=== PATIENT | male | born 1940 | race Caucasian/White ===

== ENCOUNTER → 2018-11-22 | Outpatient (CLI) | payer MEDICARE, OTHER ==
[~2018-11-22] MED LIST: AMLO10; ASPI81CH PO; Advil200 M1; Aspir 8181 MG; BENAML10/2; HYDCHL25; HYDCHL25 PO; METO25ER PO; OMEP20ER; OMEPRAZOLE MAGN20 MG PO; Prednisone20 MG PO; Ultram50 MG PO; Zithromax250 MG PO
== END | disposition home or self-care (01) ==
LOC: LAB SHORT 07:23 → PLD 07:23
DX: L57.0 Actinic keratosis (principal); L81.4 Other melanin hyperpigmentation
CPT/HCPCS: 88305

== ENCOUNTER → 2018-11-22 | Outpatient (CLI) | payer MEDICARE, OTHER | END | disposition home or self-care (01) | LOC: PLD 12:31 → LAB SHORT 12:31 | DX: L82.0 Inflamed seborrheic keratosis (principal) | CPT/HCPCS: 88305 ==

== ENCOUNTER → 2021-05-11 | Outpatient (CLI) | payer MEDICARE, OTHER | LOC: LAB 08:29 → LAB SHORT 08:29 | DX: D48.5 Neoplasm of uncertain behavior of skin (principal); Z88.6 Allergy status to analgesic agent | CPT/HCPCS: 88305 ==

== ENCOUNTER 2021-06-16 08:14 | Day surgery (SDC) | payer MEDICARE, OTHER ==
[~2021-06-16] VITALS: Ht 180.3 cm; Wt 96.0 kg
[~2021-06-16 08:14] MED LIST changes: +ATOR40TA PO; +ATROVENT HFA12.9 GM INH; +BENA20 PO; +ELIQUIS2.5 M1 PO; +SYMBICORT 16010.2 GM IH
== END 2021-06-16 14:31 | disposition home or self-care (01) ==
LOC: MHTC 08:14
DX: I70.213 Atherosclerosis of native arteries of extremities with intermittent claudication, bilateral legs (principal); I10 Essential (primary) hypertension; J44.9 Chronic obstructive pulmonary disease, unspecified; K21.9 Gastro-esophageal reflux disease without esophagitis; I48.91 Unspecified atrial fibrillation; Z87.891 Personal history of nicotine dependence; Z79.01 Long term (current) use of anticoagulants
CPT/HCPCS: 75625; 75716; 75774; 76937; 99152; 99153; C1725; C1760; C1769; C1887; C1894; C2623; C9764; J1644; J2060; J3010; J7030; J7050; Q9967

== ENCOUNTER → 2021-07-06 | Outpatient (CLI) | payer MEDICARE, OTHER | END | disposition home or self-care (01) | LOC: LAB 14:13 → LAB SHORT 14:13 | DX: L57.0 Actinic keratosis (principal) | CPT/HCPCS: 88305 ==

== ENCOUNTER → 2021-08-29 | Outpatient (CLI) | payer MEDICARE, OTHER ==
[~2021-08-29] MED LIST changes: +TIAZAC240 M1 PO
[2021-08-29 10:54] LABS: International Normalized Ratio 1.05
== END | disposition home or self-care (01) ==
LOC: LAB SHORT 10:30 → LAB 10:30
PROVIDERS: Physician Assistant
DX: Z01.812 Encounter for preprocedural laboratory examination (principal); I35.0 Nonrheumatic aortic (valve) stenosis
CPT/HCPCS: 85610

== ENCOUNTER 2022-06-07 11:29 | Inpatient (IN) | payer MEDICARE, OTHER ==
[~2022-06-07] VITALS: Ht 180.3 cm; Wt 95.0 kg
[2022-06-07 13:27] LABS: BASOPHILS ABSOLUTE AUTO 0.08 K/mm3 (0.00-0.23); BASOPHILS PERCENT AUTO 0 % (0-2); EOSINOPHILS ABSOLUTE AUTO 0.12 K/mm3 (0.00-0.68); EOSINOPHILS PERCENT AUTO 1 % (0-6); Hematocrit 38.4 % (37.0-53.0); Hemoglobin 12.7 g/dL (13.5-17.5); IMMATURE GRAN ABSOLUTE AUTO 0.09 K/mm3 (0.00-0.10); IMMATURE GRAN PERCENT AUTO 1 % (0-1); LYMPHOCYTES ABSOLUTE AUTO 1.58 K/mm3 (0.84-5.20); LYMPHOCYTES PERCENT AUTO 9 % (21-46); MONOCYTES PERCENT AUTO 11 % (4-13); Mean Corpuscular HGB 26.5 pg (26.0-34.0); Mean Corpuscular HGB Conc 33.1 g/dL (31.5-36.5); Mean Corpuscular Volume 80 fL (80-100); Mean Platelet Volume 9.6 fL (9.1-12.4); NEUTROPHILS ABSOLUTE AUTO 14.54 K/mm3 (1.96-9.15); NEUTROPHILS PERCENT AUTO 79 % (41-73); Platelet Count 339 K/mm3 (150-400); RDW Coefficient Variation 17.2 % (11.7-14.2); Red Blood Cell Count 4.79 M/mm3 (4.30-5.90); White Blood Cell Count 18.51 K/mm3 (4.00-11.30)
[2022-06-07 13:42] LABS: Bun/Creatinine Ratio 19.8 (12.0-20.0); Calcium, Blood 8.5 mg/dL (8.5-10.1); Creatinine, Blood 0.61 mg/dL (0.60-1.20); Potassium, Blood 3.6 mmol/L (3.5-5.5)
[2022-06-07 13:47] LABS: International Normalized Ratio 1.09; Prothrombin Time Results 11.4 Sec (9.7-11.5)
[2022-06-07 13:53] LABS: Influenza A, PCR NEGATIVE (NEGATIVE); Influenza B, PCR NEGATIVE (NEGATIVE); Resp Syncytial Virus, PCR NEGATIVE (NEGATIVE); SARS-Cov-2 (COVID-19) PCR, MMC NEGATIVE (NEGATIVE)
[2022-06-07] MEDS ORDERED: ASPIR 8181 M1 PO (14:31)
--- NOTE | 2022-06-07 15:34 | NUR ---
BEER and TEDS Patient claims to drink 4 cans of beer daily; however, states he drinks about two 6 packs daily and more on a hot day. With concerns of alcohol withdrawal, per T.O. from Dr. Mancia, patient is to have one beer with every meal. Patient also declines to wear TEDS per his vascular doctor's recommendation due to already poor perfusion in lower extremities. Dr. Mancia is aware and order to d/c TEDS. Patient will receive VTE prophylaxis is the form of lovenox.
--- NOTE | 2022-06-07 16:01 | NUR ---
COLACE AND ST Patient c/o having food stuck in throat sometimes. Ate a couple of soft taco and had to drink water to get it unstuck according to patient. Also requesting colace. V.O. from Dr. Mancia to order ST to eval and treat and give colace 100 mg PO daily.
--- NOTE | 2022-06-07 17:35 | NUR ---
Shift Summary Arrived from ED, reort received from RAMIRO Perez. A/Ox4, pleasant/cooperative. Slide transfer to bed x 4 assist. C/O 3/10 L hip pain, medicated with scheduled tylenol with good effect. reports patient drinking beer more than what patient had initially stated to this RN. CIWA 0 at this time. Currently on bedrest, agreeable to use bedpan and urinal for the mean time. Good appetite. Did c/o some food getting stuck in throat, CREAM BUYER eval ordered. Pedal pulses required doppler to auscultate. Patient reports poor perfusion from past arterial ultrasound, refused TEDS. Settled to room, call light near.
--- NOTE | 2022-06-08 04:09 | NUR ---
SHIFT SUMMARY A/OX4, BEDREST AT THIS TIME. C/O PAIN TO LLE, MEDICATED PER EMAR. FAINT PEDAL PULSES FOUND WITH DOPPLER. HX SIRENA, TO BRING IN CPAP TODAY. CURRENTLY ON 2L NC WITH CONT. BIOX IN PLACE. WILL CONTINUE TO MONITOR AND REPORT TO ONCOMING RN.
[2022-06-08 06:15] LABS: BASOPHILS ABSOLUTE AUTO 0.06 K/mm3 (0.00-0.23); BASOPHILS PERCENT AUTO 0 % (0-2); EOSINOPHILS PERCENT AUTO 2 % (0-6); Hematocrit 36.2 % (37.0-53.0); IMMATURE GRAN ABSOLUTE AUTO 0.05 K/mm3 (0.00-0.10); IMMATURE GRAN PERCENT AUTO 0 % (0-1); LYMPHOCYTES ABSOLUTE AUTO 1.47 K/mm3 (0.84-5.20); LYMPHOCYTES PERCENT AUTO 10 % (21-46); MONOCYTES ABSOLUTE AUTO 1.96 K/mm3 (0.16-1.47); MONOCYTES PERCENT AUTO 14 % (4-13); Mean Corpuscular HGB 26.6 pg (26.0-34.0); Mean Corpuscular HGB Conc 33.1 g/dL (31.5-36.5); Mean Corpuscular Volume 80 fL (80-100); Mean Platelet Volume 10.4 fL (9.1-12.4); NEUTROPHILS ABSOLUTE AUTO 10.46 K/mm3 (1.96-9.15); NEUTROPHILS PERCENT AUTO 73 % (41-73); Platelet Count 338 K/mm3 (150-400); RDW Coefficient Variation 17.1 % (11.7-14.2); RDW Standard Deviation 48.7 fL (35.1-46.3); Red Blood Cell Count 4.51 M/mm3 (4.30-5.90)
[2022-06-08 06:37] LABS: Albumin, Blood 3.2 g/dL (3.4-5.0); Anion Gap 5 mmol/L (6-16); Blood Urea Nitrogen 12 mg/dL (8-24); Bun/Creatinine Ratio 21.9 (12.0-20.0); CO2, Blood 28 mmol/L (21-32); Calcium, Blood 8.4 mg/dL (8.5-10.1); Chloride, Blood 101 mmol/L (98-108); Creatinine, Blood 0.55 mg/dL (0.60-1.20); Glomerular Filtration Rate 100 (60-); Glucose, Blood 95 mg/dL (70-99); Magnesium, Blood 2.1 mg/dL (1.6-2.4); Phosphorus, Blood 2.8 mg/dL (2.5-4.9); Potassium, Blood 3.5 mmol/L (3.5-5.5); Sodium, Blood 134 mmol/L (136-145)
--- NOTE | 2022-06-08 15:46 | NUR ---
SHIFT SUMMARY A&O X4, LEFT FEMUR FX. VSS ON 2L O2, SATS >92%. PATIENT IS CURRENTLY BEDREST UNTIL SURGERY WHICH WAS DELAYED D/T PATIENT TAKING ELIQUIS, LAST DOSE 8/2 AM. PATIENT IS CURRENTLY EATING, DRINKING, & VOIDING WELL. NO BM. REPORTS MODERATE PAIN, MANAGED PER EMAR. HOPEFUL FOR SURGERY TOMORROW. CALLS APPROPRIATELY. REPORT GIVEN TO RAMIRO STAHL.
--- NOTE | 2022-06-09 04:46 | NUR ---
ASSUMED CARE OF PT AT 1900 HRS. PT IS A&OX4, ON BED REST, VIODS IN AND IS ABLE TO MAKE NEEDS KNOWN. PT HAS BEEN NPO SINCE MIDNIGHT FOR POSSIBLE SURGERY TODAY D/T FALL AND BROKNE HIP. CSM IN ALL EXTREMITIES. PAIN IS WELL CONTROLLED WITH PRN MORPHINE 2MG. PT RESTS BETWEEN CARES, SLEEPS 4 HOURS THIS SHIFT. WILL CONTINUE TO MONITOR AND GIVE HANDOFF REPORT TO DAYSHIFT RN.
[2022-06-09 05:02] LABS: BASOPHILS ABSOLUTE AUTO 0.06 K/mm3 (0.00-0.23); BASOPHILS PERCENT AUTO 0 % (0-2); EOSINOPHILS ABSOLUTE AUTO 0.18 K/mm3 (0.00-0.68); EOSINOPHILS PERCENT AUTO 1 % (0-6); Hematocrit 36.1 % (37.0-53.0); Hemoglobin 11.8 g/dL (13.5-17.5); IMMATURE GRAN ABSOLUTE AUTO 0.05 K/mm3 (0.00-0.10); IMMATURE GRAN PERCENT AUTO 0 % (0-1); LYMPHOCYTES ABSOLUTE AUTO 1.48 K/mm3 (0.84-5.20); LYMPHOCYTES PERCENT AUTO 10 % (21-46); MONOCYTES ABSOLUTE AUTO 1.77 K/mm3 (0.16-1.47); MONOCYTES PERCENT AUTO 12 % (4-13); Mean Corpuscular HGB Conc 32.7 g/dL (31.5-36.5); Mean Corpuscular Volume 80 fL (80-100); Mean Platelet Volume 10.3 fL (9.1-12.4); NEUTROPHILS ABSOLUTE AUTO 10.77 K/mm3 (1.96-9.15); NEUTROPHILS PERCENT AUTO 75 % (41-73); Platelet Count 374 K/mm3 (150-400); RDW Standard Deviation 48.7 fL (35.1-46.3); Red Blood Cell Count 4.53 M/mm3 (4.30-5.90); White Blood Cell Count 14.31 K/mm3 (4.00-11.30)
[2022-06-09 05:26] LABS: Albumin, Blood 3.2 g/dL (3.4-5.0); Anion Gap 5 mmol/L (6-16); Blood Urea Nitrogen 13 mg/dL (8-24); Bun/Creatinine Ratio 24.1 (12.0-20.0); CO2, Blood 29 mmol/L (21-32); Calcium, Blood 8.7 mg/dL (8.5-10.1); Chloride, Blood 96 mmol/L (98-108); Creatinine, Blood 0.54 mg/dL (0.60-1.20); Glomerular Filtration Rate 101 (60-); Glucose, Blood 104 mg/dL (70-99); Phosphorus, Blood 3.1 mg/dL (2.5-4.9); Potassium, Blood 3.5 mmol/L (3.5-5.5); Sodium, Blood 130 mmol/L (136-145)
--- NOTE | 2022-06-09 12:00 | NUR ---
PT TO SURGERY AT THIS TIME. FAMILY AT BEDSIDE.
--- NOTE | 2022-06-09 17:24 | NUR ---
SHIFT SUMMARY S/P L ORALIA HIP. RETURNED FROM PROCEDURE AT 1715. PT AA0X4, DENIES PAIN OR NAUSEA. TOLERATING ICE WATER AND JELLO WELL AT THIS TIME. AQUACEL CDI TO LEFT HIP SENSATION INTACT. MOVES EXTREMETIES WELL. REMAINS ON 3L OXYGEN CURRENTLY. WILL CONTINUE TO WEAN TOLERATED.
--- NOTE | 2022-06-10 04:19 | NUR ---
ASSUMED CARE OF PT AT 1900 HRS. PT IS A&OX4, MODERATE ASSIST TO BR W/ FWW AND IS ABLE TO MAKE NEEDS KNOWN. POST OP DAY 1 FOR HIP ORALIA, AQUACELL DRESSING IN PLACE, CDI. CSM INTACT. PAIN WELL CONTROLLED WITH TYLENOL AND ULTRAM. PT ABLE TO AMBULATE TO BR W/ FWW AND STAND BY ASSISTANCE. TOLERATING DIET. PT UP IN CHAIR, CALL LIGHT WITHIN REACH. WILL CONTINUE TO MONITOR AND GIVE REPORT TO DANIEL RUBIO.
--- NOTE | 2022-06-10 04:39 | NUR ---
ASSUMED CARE OF PT AT 1900 HRS. PT IS ALERT TO SELF ONLY, HAS BASELINE DEMENTIA. PT HAS BEEN NPO SINCE MIDNIGHT FOR POSSIBLE SURGICAL REPAIR OF HIP AND SHOULDER, SURGICAL CONSULT CALLED IN. PT WOKE UP CONFUSED AND PULLED IV AT THE START OF SHIFT. PAIN CONTROLLED WITH ULTRAM. PT IS A MAX ASSIST IN BED. BED ALARM IS ON FOR PT SAFETY. PT EASY TO REORIENT. WILL CONTINUE TO MONITOR AND GIVE HANDOFF REPORT TO DAY SHIFT RN.
[2022-06-10 06:04] LABS: BASOPHILS ABSOLUTE AUTO 0.03 K/mm3 (0.00-0.23); BASOPHILS PERCENT AUTO 0 % (0-2); EOSINOPHILS PERCENT AUTO 0 % (0-6); Hematocrit 33.1 % (37.0-53.0); Hemoglobin 11.2 g/dL (13.5-17.5); IMMATURE GRAN ABSOLUTE AUTO 0.13 K/mm3 (0.00-0.10); IMMATURE GRAN PERCENT AUTO 1 % (0-1); LYMPHOCYTES ABSOLUTE AUTO 0.61 K/mm3 (0.84-5.20); LYMPHOCYTES PERCENT AUTO 3 % (21-46); MONOCYTES ABSOLUTE AUTO 1.85 K/mm3 (0.16-1.47); MONOCYTES PERCENT AUTO 9 % (4-13); Mean Corpuscular HGB 26.7 pg (26.0-34.0); Mean Corpuscular HGB Conc 33.8 g/dL (31.5-36.5); Mean Corpuscular Volume 79 fL (80-100); Mean Platelet Volume 9.7 fL (9.1-12.4); NEUTROPHILS ABSOLUTE AUTO 19.02 K/mm3 (1.96-9.15); NEUTROPHILS PERCENT AUTO 88 % (41-73); Platelet Count 358 K/mm3 (150-400); RDW Standard Deviation 48.2 fL (35.1-46.3); White Blood Cell Count 21.64 K/mm3 (4.00-11.30)
[2022-06-10 06:27] LABS: Anion Gap 8 mmol/L (6-16); Blood Urea Nitrogen 15 mg/dL (8-24); CO2, Blood 26 mmol/L (21-32); Calcium, Blood 8.4 mg/dL (8.5-10.1); Chloride, Blood 95 mmol/L (98-108); Glomerular Filtration Rate 98 (60-); Glucose, Blood 130 mg/dL (70-99); Phosphorus, Blood 3.4 mg/dL (2.5-4.9); Potassium, Blood 4.2 mmol/L (3.5-5.5); Sodium, Blood 129 mmol/L (136-145)
--- NOTE | 2022-06-10 15:04 | NUR ---
SHIFT SUMMARY: POD 1 LEFT ORALIA HIP PATIENT IS A&OX4. VS ARE WNL AND IS ON RA. PAIN IS MANAGED WITH PO PAIN MEDICATION. LEFT HIP HAS AN AQUACEL THAT IS C/D/I. PATIENT IS ABLE TO WIGGLE FINGERS AND TOES WHEN ASKED. PATIENT REPORTS SLIGHT NUMBNESS ON THE TOP OF HIS LEFT FOOT, BUT DR. ALMODOVAR STATED THAT IT WILL GO AWAY IN TIME. PATIENT IS A SBA WITH FWW AND GAIT BELT. HE IS TOLERATING PO INTAKE AND IS VOIDING/PASSING GAS. PATIENT IS LAYING IN BED WITH CALL LIGHT WITHIN REACH. THE PLAN IS FOR HIM TO GET DISCHARGED TOMORROW WITH HOME HEALTH THAT IS ALREADY SET UP.
--- NOTE | 2022-06-11 02:00 | NUR ---
AMBULATED TO BATHROOM USING GB AMD WALKER, TOLERATED WELL. BSC PLACED OVER COMMODE AND PT REMINDED NOT TO BEND PAST 90 DEGREES AND MAINTAIN ALL HIP PRECAUTIONS. HE ACKNOWLEDGED THAT HE HAD NOT BEEN MAINTAINING WHAT HE HAD BEEN TOLD AND WOULD TRY TO DO BETTER. NURSING REITERATED WHAT MAY HAPPEN IF HE DIDN'T AND THE DAMAGE THAT COULD RESULT FROM NOT BEING COMPLIANT. PT VERBALIZES UNDERSTANDING. SAFETY MEASURES IN PLACED. WILL CONTINUE TO MONITOR AND ADDRESS NEED THEY OCCUR.
--- NOTE | 2022-06-11 05:16 | NUR ---
LYING IN SEMI FOWLERS WITH EYES CLOSED. CPAP IN PLACE WITH BIOX. LEFT HIP DRESSING IN PLACE AND IS C/D/I. PT HAS GOTTEN OOB TO URINATE X2 THIS SHIFT AND HAS TOLERATED WELL. SL 22G PIV TO LEFT WRIST IS PATENT, FLUSHING WITH EASE. DENIES PAIN, DISCOMFORT OR FURTHER NEEDS AT THIS TIME. SAFETY MEASURES IN PLACE. WILL CONTINUE TO MONITOR FOR CHANGES AND ADDRESS THEY ARISE. WILL GIVE HAND OFF TO ONCOMING SHIFT USING SBAR.
[2022-06-11 05:34] LABS: BASOPHILS ABSOLUTE AUTO 0.01 K/mm3 (0.00-0.23); BASOPHILS PERCENT AUTO 0 % (0-2); EOSINOPHILS ABSOLUTE AUTO 0.04 K/mm3 (0.00-0.68); EOSINOPHILS PERCENT AUTO 0 % (0-6); Hematocrit 33.2 % (37.0-53.0); Hemoglobin 11.1 g/dL (13.5-17.5); IMMATURE GRAN PERCENT AUTO 1 % (0-1); LYMPHOCYTES ABSOLUTE AUTO 1.46 K/mm3 (0.84-5.20); LYMPHOCYTES PERCENT AUTO 9 % (21-46); MONOCYTES ABSOLUTE AUTO 2.51 K/mm3 (0.16-1.47); MONOCYTES PERCENT AUTO 15 % (4-13); Mean Corpuscular HGB 26.3 pg (26.0-34.0); Mean Corpuscular HGB Conc 33.4 g/dL (31.5-36.5); Mean Corpuscular Volume 79 fL (80-100); Mean Platelet Volume 10.2 fL (9.1-12.4); NEUTROPHILS PERCENT AUTO 76 % (41-73); Platelet Count 385 K/mm3 (150-400); RDW Coefficient Variation 17.1 % (11.7-14.2); Red Blood Cell Count 4.22 M/mm3 (4.30-5.90); White Blood Cell Count 17.22 K/mm3 (4.00-11.30)
[2022-06-11 06:04] LABS: Albumin, Blood 3.1 g/dL (3.4-5.0); Anion Gap 4 mmol/L (6-16); Blood Urea Nitrogen 18 mg/dL (8-24); Bun/Creatinine Ratio 27.7 (12.0-20.0); CO2, Blood 32 mmol/L (21-32); Calcium, Blood 8.7 mg/dL (8.5-10.1); Chloride, Blood 95 mmol/L (98-108); Creatinine, Blood 0.65 mg/dL (0.60-1.20); Glomerular Filtration Rate 95 (60-); Glucose, Blood 105 mg/dL (70-99); Potassium, Blood 4.2 mmol/L (3.5-5.5); Sodium, Blood 131 mmol/L (136-145)
--- NOTE | 2022-06-11 07:30 | NUR ---
ASSUMED CARE: PT LAYING IN BED, AWAKE AND TALKING TO STAFF. STATES TINGLING TO LEFT LEG BUT CAN MOVE LEG AND TOES. SMALL AMOUNT OF BLOOD NOTED TO HIP DRESSING. DENIES FURTHER NEEDS OR CONCERNS AT THIS TIME.
[2022-06-11] MEDS ORDERED: TRAM50 PO (10:13)
--- NOTE | 2022-06-11 10:30 | NUR ---
PT'S IVS DC'D WNL. PT'S AQUACELL DRESSING CHANGED. WOUND SITE WITH NATASHA, NO ACUTE BLEEDING OR SIGN OF INFECTION NOTED. PT'S SON AT BEDSIDE. ESCORTED OUT VIA WHEEL CHAIR. DENIED FURTHER NEEDS OR CONCERNS.
== END 2022-06-11 10:55 | disposition home health service (06) | DRG 522 ==
LOC: ER 11:29 → SURS 13:21
PROVIDERS: Orthopaedic Surgery; Student in an Organized Health Care Education/Training Program; ADMIT Family Medicine
PROC: 0SRS0JA Replacement of Left Hip Joint, Femoral Surface with Synthetic Substitute, Uncemented, Open Approach (ICD-10-PCS; principal; 2022-06-09 13:00)
DX: S72.002A Fracture of unspecified part of neck of left femur, initial encounter for closed fracture (principal); I50.32 Chronic diastolic (congestive) heart failure; Z20.822 Contact with and (suspected) exposure to COVID-19; I48.91 Unspecified atrial fibrillation; M54.9 Dorsalgia, unspecified; G89.29 Other chronic pain; I11.0 Hypertensive heart disease with heart failure; F17.210 Nicotine dependence, cigarettes, uncomplicated; J43.9 Emphysema, unspecified; D50.9 Iron deficiency anemia, unspecified; Z96.612 Presence of left artificial shoulder joint; Z72.9 Problem related to lifestyle, unspecified; Z98.890 Other specified postprocedural states; Z88.8 Allergy status to other drugs, medicaments and biological substances; Z79.01 Long term (current) use of anticoagulants; Z79.899 Other long term (current) drug therapy; W18.39XA Other fall on same level, initial encounter
CPT/HCPCS: 0241U; 36415; 72170; 73502; 80048; 80069; 83735; 85025; 85610; 85730; 92610; 93005; 93010; 94660; 94760; 94762; 96374; 97110; 97116; 97162; 97166; 97530; 97535; 99285-25; A9270; C1776; J0171; J0690; J0735; J1100; J1650; J1885; J2250; J2270; J2370; J2405; J2704; J2795; J3010; J7030; J7120

== ENCOUNTER 2022-10-24 07:57 | Day surgery (SDC) | payer MEDICARE, OTHER ==
[~2022-10-24] VITALS: Ht 180.3 cm; Wt 99.0 kg
[~2022-10-24 07:57] MED LIST changes: +ASPIR 8181 M1 PO; +TRAM50 PO
[2022-10-24] MEDS ORDERED: LASIX40 MG PO (09:04)
[2022-10-24] MEDS ORDERED: POTA20PAC (09:05)
--- NOTE | 2022-10-24 13:45 | NUR ---
PT BACK TO RECOVERY VIA RECLINER AFTER PROCEDURE. ALERT AND ORIENTED, DENIES PAIN OR DISCOMFORT. RIGHT RADIAL SITE CLEAN AND DRY, NO BLEEDING OR SWELLING NOTED.
--- NOTE | 2022-10-24 14:08 | NUR ---
PT EATING LUNCH, DENIES CURRENT NEEDS. CALL LIGHT IN REACH, VSS.
--- NOTE | 2022-10-24 14:49 | NUR ---
DR PAREDES AT BEDSIDE SPEAKING WITH PT.
--- NOTE | 2022-10-24 15:06 | NUR ---
RIGHT RADIAL TR BAND HAS BEEN FULLY DEFLATED. NO BLEEDING OR SWELLING NOTED AT SITE.
--- NOTE | 2022-10-24 16:03 | NUR ---
IV DC'D, CATH INTACT. PT GIVEN DC INSTRUCTIONS AND FOLLOW UP INFO, VERBALIZED UNDERSTANDING. PT OUT TO CAR VIA WHEELCHAIR.
== END 2022-10-24 16:00 | disposition home or self-care (01) ==
LOC: MHTC 07:57
DX: I25.10 Atherosclerotic heart disease of native coronary artery without angina pectoris (principal); I35.0 Nonrheumatic aortic (valve) stenosis; I70.213 Atherosclerosis of native arteries of extremities with intermittent claudication, bilateral legs; I11.9 Hypertensive heart disease without heart failure; I07.1 Rheumatic tricuspid insufficiency; I48.91 Unspecified atrial fibrillation; K21.9 Gastro-esophageal reflux disease without esophagitis; Z86.73 Personal history of transient ischemic attack (TIA), and cerebral infarction without residual deficits
CPT/HCPCS: 76937; 93454; 99152; A9270; C1769; C1887; C1894; J1644; J2250; J3010; J7030; J7050; Q9967

== ENCOUNTER 2023-03-16 10:38 | Inpatient (IN) | payer MEDICARE, OTHER ==
[~2023-03-16] VITALS: Ht 180.3 cm; Wt 94.0 kg
[~2023-03-16 10:38] MED LIST changes: +LASIX40 MG PO; +POTA20PAC
[2023-03-16 11:58] LABS: Hematocrit 40.2 % (37.0-53.0); Hemoglobin 13.3 g/dL (13.5-17.5); Mean Corpuscular HGB 26.5 pg (26.0-34.0); Mean Corpuscular HGB Conc 33.1 g/dL (31.5-36.5); Mean Corpuscular Volume 80 fL (80-100); Mean Platelet Volume 10.4 fL (9.1-12.4); Platelet Count 208 K/mm3 (150-400); RDW Coefficient Variation 23.8 % (11.7-14.2); Red Blood Cell Count 5.01 M/mm3 (4.30-5.90); White Blood Cell Count 23.03 K/mm3 (4.00-11.30)
[2023-03-16 12:41] LABS: Albumin, Blood 3.1 g/dL (3.4-5.0); Albumin/Globulin Ratio 0.8 (0.8-1.8); Bilirubin, Total 0.5 mg/dL (0.1-1.0); Bun/Creatinine Ratio 32.9 (12.0-20.0); Calcium, Blood 8.9 mg/dL (8.5-10.1); Creatinine, Blood 0.88 mg/dL (0.60-1.20); Potassium, Blood 3.6 mmol/L (3.5-5.5); Total Protein, Blood 7.1 g/dL (6.4-8.2)
[2023-03-16] MEDS ORDERED: FURO40 PO (15:49)
[2023-03-16] MEDS ORDERED: POTCHL20ER PO (17:51)
[2023-03-16 18:34] VITALS: BP 149/87
--- NOTE | 2023-03-16 19:32 | NUR ---
ADMIT 183 PT ADMIT FROM ER. ALERT AND ORIENTED X4. R/A COURSE IN LOWER LOBES. PT TUCKED IN AND REPORT GIVEN TO ONCOMPREM RN
[2023-03-16 20:32] VITALS: BP 143/57
[2023-03-17 05:21] LABS: BASOPHILS ABSOLUTE AUTO 0.03 K/mm3 (0.00-0.23); BASOPHILS PERCENT AUTO 0 % (0-2); EOSINOPHILS PERCENT AUTO 0 % (0-6); Hematocrit 37.1 % (37.0-53.0); Hemoglobin 12.4 g/dL (13.5-17.5); IMMATURE GRAN ABSOLUTE AUTO 0.11 K/mm3 (0.00-0.10); IMMATURE GRAN PERCENT AUTO 1 % (0-1); LYMPHOCYTES ABSOLUTE AUTO 0.84 K/mm3 (0.84-5.20); LYMPHOCYTES PERCENT AUTO 4 % (21-46); MONOCYTES ABSOLUTE AUTO 1.99 K/mm3 (0.16-1.47); MONOCYTES PERCENT AUTO 10 % (4-13); Mean Corpuscular HGB 26.2 pg (26.0-34.0); Mean Corpuscular HGB Conc 33.4 g/dL (31.5-36.5); Mean Corpuscular Volume 78 fL (80-100); Mean Platelet Volume 10.6 fL (9.1-12.4); NEUTROPHILS ABSOLUTE AUTO 17.45 K/mm3 (1.96-9.15); NEUTROPHILS PERCENT AUTO 86 % (41-73); Platelet Count 208 K/mm3 (150-400); RDW Coefficient Variation 23.1 % (11.7-14.2); RDW Standard Deviation 63.7 fL (35.1-46.3); Red Blood Cell Count 4.73 M/mm3 (4.30-5.90); White Blood Cell Count 20.42 K/mm3 (4.00-11.30)
[2023-03-17 05:58] LABS: Albumin, Blood 2.7 g/dL (3.4-5.0); Albumin/Globulin Ratio 0.7 (0.8-1.8); Bilirubin, Total 0.5 mg/dL (0.1-1.0); Bun/Creatinine Ratio 27.1 (12.0-20.0); Calcium, Blood 8.4 mg/dL (8.5-10.1); Creatinine, Blood 0.78 mg/dL (0.60-1.20); Globulin, Blood 3.7 g/dL (2.2-4.0); Magnesium, Blood 1.9 mg/dL (1.6-2.4); Potassium, Blood 3.3 mmol/L (3.5-5.5); Total Protein, Blood 6.4 g/dL (6.4-8.2)
--- NOTE | 2023-03-17 06:45 | NUR ---
PT REQUESTING ADDITIONAL DOSE OF OMEPRAZOLE. AO, VSS, INTERMITTENT 2L NC FOR PATIENT COMFORT, BASELINE NO O2. NO CHANGES NOTED TO RLE CELLULITIS DURING SHIFT. USES URINAL INDEPENDENTLY SITTING AT BEDSIDE. NO BM FOR 3 DAYS PER SPOUSE REPORT. DID NOT ATTEMPT TO WALK LAST NIGHT. IV INFILTRATED, REPLACED WITH IV IN RFA.
[2023-03-17 07:24] VITALS: BP 122/63
[2023-03-17 14:33] VITALS: BP 138/61
--- NOTE | 2023-03-17 17:56 | NUR ---
SHIFT SUMMARY NO ACUTE CHANGES THIS SHIFT. VSS. IS A&O X 4. PLEASANT & COOPERATIVE WITH ALL CARE. IV ANTI BIOTICS GIVEN ORDERED. APPETITE IS GOOD, IS INDEPENDENT FOR RESTROOM USE, OTHERWISE IS BEDREST. MEDICATED ONCE FOR C/O NAUSEA WITH GOOD RELIEF. CALL LIGHT WITHIN REACH, BED IN LOW POSITION. PLAN IS TO CONTINUE IV ANTI BIOTICS & POSSIBLY HOME ON MONDAY.
[2023-03-17 19:14] VITALS: BP 114/45
[2023-03-18 02:12] VITALS: BP 123/54
[2023-03-18 03:31] LABS: Vancomycin, Trough 9.7 ug/mL (5.0-10.0)
--- NOTE | 2023-03-18 06:42 | NUR ---
PT STATES RLE PAIN IS DECREASING, RLE STILL RED, SWOLLEN. ANTIBIOTICS GIVEN ORDERED. PT DID NOT GET OUT OF BED, USES URINAL INDEPENDENTLY. SPOUSE CALLED THIS MORNING STATES PATIENT HAS NOT HAD BM IN 6 DAYS. SPOUSE ALSO STATES PT DRINKS 3-4 BEERS DAILY AT HOME, THIS WAS NOT PREVIOUSLY REPORTED. NO SIGNS OF CIWA AT THIS TIME. OTHERWISE UNEVENTFUL NIGHT.
[2023-03-18 07:41] VITALS: BP 139/67
[2023-03-18 08:45] LABS: BASOPHILS ABSOLUTE AUTO 0.05 K/mm3 (0.00-0.23); BASOPHILS PERCENT AUTO 0 % (0-2); EOSINOPHILS ABSOLUTE AUTO 0.03 K/mm3 (0.00-0.68); EOSINOPHILS PERCENT AUTO 0 % (0-6); Hematocrit 36.9 % (37.0-53.0); Hemoglobin 12.2 g/dL (13.5-17.5); IMMATURE GRAN ABSOLUTE AUTO 0.12 K/mm3 (0.00-0.10); IMMATURE GRAN PERCENT AUTO 1 % (0-1); LYMPHOCYTES ABSOLUTE AUTO 1.12 K/mm3 (0.84-5.20); LYMPHOCYTES PERCENT AUTO 5 % (21-46); MONOCYTES ABSOLUTE AUTO 2.51 K/mm3 (0.16-1.47); MONOCYTES PERCENT AUTO 11 % (4-13); Mean Corpuscular HGB Conc 33.1 g/dL (31.5-36.5); Mean Corpuscular Volume 79 fL (80-100); NEUTROPHILS ABSOLUTE AUTO 18.25 K/mm3 (1.96-9.15); NEUTROPHILS PERCENT AUTO 83 % (41-73); Platelet Count 213 K/mm3 (150-400); RDW Standard Deviation 63.7 fL (35.1-46.3); White Blood Cell Count 22.08 K/mm3 (4.00-11.30)
[2023-03-18 09:09] LABS: Bun/Creatinine Ratio 27.7 (12.0-20.0); Calcium, Blood 8.2 mg/dL (8.5-10.1); Creatinine, Blood 0.72 mg/dL (0.60-1.20); Potassium, Blood 3.8 mmol/L (3.5-5.5)
[2023-03-18 15:35] VITALS: BP 118/63
--- NOTE | 2023-03-18 16:36 | NUR ---
PATIENT A&OX4 AND RESTING IN HIS BED. RLE IS RED AND SWOLLEN FROM JUST BELOW THE KNEE. MILD REDNESS NOTED AT THE RIGHT GROIN AREA. NO OPEN AREAS OR DRAINAIGE NOTED. RFA IV PATENT AND INFUSES WELL WITH SCHEDULED IV ABX. PATIENT REPORTS NO BOWEL MOVEMENT X4 DAYS. NO REPORTS OF GASTRIC DISCOMFORT, APPETITIE IS GOOD, BOWEL TONES ACTIVE X4 QUADRANTS, PATIENT POSITIVE FOR FLATUS, BOWEL MEDICATION ADMINISTERED ORDERED. FAMILY AT BEDSIDE FOR SEVERAL HOURS AND REQUESTING TO SPEAK WITH PROVIDER JENISE. NURSING WILL CONTINUE TO MONITOR.
[2023-03-18 19:09] VITALS: BP 118/58
[2023-03-19 02:57] VITALS: BP 150/78
[2023-03-19 03:42] LABS: Vancomycin, Trough 12.8 ug/mL (5.0-10.0)
--- NOTE | 2023-03-19 06:33 | NUR ---
AO, PLEASANT. REPORTS CONSTANT MILD PAIN IN LEGS BUT DENIES NEED FOR PAIN MEDICATION. RLE IS BRIGHT RED, EDEMATOUS. VANCOMYCIN DOSE INCREASED FOR TODAY'S MORNING DOSE. PT SATS WERE 89% WHILE SLEEPING ON RA, PLACED 2L O2 AT THAT TIME. NO EVENTS DURING SHIFT.
[2023-03-19 07:31] VITALS: BP 158/77
[2023-03-19 09:39] LABS: BASOPHILS ABSOLUTE AUTO 0.07 K/mm3 (0.00-0.23); BASOPHILS PERCENT AUTO 0 % (0-2); EOSINOPHILS ABSOLUTE AUTO 0.11 K/mm3 (0.00-0.68); EOSINOPHILS PERCENT AUTO 1 % (0-6); Hematocrit 34.5 % (37.0-53.0); Hemoglobin 11.5 g/dL (13.5-17.5); IMMATURE GRAN ABSOLUTE AUTO 0.18 K/mm3 (0.00-0.10); IMMATURE GRAN PERCENT AUTO 1 % (0-1); LYMPHOCYTES PERCENT AUTO 5 % (21-46); MONOCYTES ABSOLUTE AUTO 1.72 K/mm3 (0.16-1.47); MONOCYTES PERCENT AUTO 9 % (4-13); Mean Corpuscular HGB 26.3 pg (26.0-34.0); Mean Corpuscular HGB Conc 33.3 g/dL (31.5-36.5); Mean Corpuscular Volume 79 fL (80-100); Mean Platelet Volume 10.6 fL (9.1-12.4); NEUTROPHILS ABSOLUTE AUTO 17.25 K/mm3 (1.96-9.15); NEUTROPHILS PERCENT AUTO 85 % (41-73); Platelet Count 267 K/mm3 (150-400); RDW Coefficient Variation 22.8 % (11.7-14.2); Red Blood Cell Count 4.37 M/mm3 (4.30-5.90); White Blood Cell Count 20.33 K/mm3 (4.00-11.30)
--- NOTE | 2023-03-19 09:47 | NUR ---
NURSE NOTE THIS NURSE AGREES WITH STUDENT NURSE ASSESSMENT.
[2023-03-19 10:05] LABS: Bun/Creatinine Ratio 22.5 (12.0-20.0); Calcium, Blood 7.9 mg/dL (8.5-10.1); Creatinine, Blood 0.67 mg/dL (0.60-1.20); Potassium, Blood 3.4 mmol/L (3.5-5.5)
[2023-03-19 15:07] VITALS: BP 134/75
--- NOTE | 2023-03-19 15:41 | NUR ---
PATIENT RESTING IN BED THROUGHOUT THIS SHIFT. REDDNESS TO RLE SHOWS NO CHANGE FROM JUST BELOW THE KNEE TO THE TIP OF THE TOES. NASAL CANNULA RUNNING AT 2LPM APPLIED DURING PREVIOS SHIFT. O2 SATS MAINTAINING >95% WITH SPOT CHECKS. SPOUSE AND FAMILY AT BEDSIDE. PROVIDER AT BEDSIDE TO DISCUSS PLAN OF CARE AND ANSWER QUESTIONS. INCENTIVE SPIROMETER PLACED AT BEDSIDE AND PATIENT EDUCATION PERFORMED X2. PATIENT'S INCENTIVE EFFORTS MAXED AT 1000 ON THE IS. ANTERIOR PORTION OF LOWER RIGHT LEG SPONTANEOUSLY DRAINING SEROUS FLUID AT APPROX 1300. ABSORBITIVE PAD PLACED UNDER EXTREMITY AND ABDOMINAL PAD PLACED ON TOP ABSOPTION OF DRAINAIGE. PATIENT REPORTS NO CHANGE IN PAIN LEVEL OF A 4/10 (10MAX) AND SETS A TOLERABLE PAIN GOAL OF <6/10 (10MAX). VASCULAR SURGERY CONSULT PENDING. NURSING WILL CONTINUE TO MONITOR.
--- NOTE | 2023-03-19 17:59 | NUR ---
NURSE NOTE THIS RN AGREED WITH SHIFT SUMMARY AND SHIFT ASSESSMENT.
[2023-03-19 20:00] VITALS: BP 135/97
[2023-03-20 03:15] VITALS: BP 151/73
--- NOTE | 2023-03-20 03:52 | NUR ---
CITY MAINTENANCE MANAGER ASSESSMENT NO ACUTE EVENTS DURING THIS SHIFT. A&OX4. PATIENT EFFECTIVELY COMMUNICATES NEEDS. RR EVEN AND UNLABORED ON RA. SPO2 >92%. VSS. PAIN ASSESSED AND MEDICATED PER EMAR. PATIENT NOTED TO SLEEP THROUGHOUT THE NIGHT WITHOUT ACUTE CONCERNS. BED LOW AND LOCKED. CALL LIGHT WITHIN REACH. THIS RN WILL CONTINUE TO MONITOR.
[2023-03-20 04:25] LABS: BASOPHILS ABSOLUTE AUTO 0.06 K/mm3 (0.00-0.23); BASOPHILS PERCENT AUTO 0 % (0-2); EOSINOPHILS ABSOLUTE AUTO 0.27 K/mm3 (0.00-0.68); EOSINOPHILS PERCENT AUTO 2 % (0-6); Hematocrit 36.1 % (37.0-53.0); IMMATURE GRAN ABSOLUTE AUTO 0.15 K/mm3 (0.00-0.10); IMMATURE GRAN PERCENT AUTO 1 % (0-1); LYMPHOCYTES ABSOLUTE AUTO 1.22 K/mm3 (0.84-5.20); LYMPHOCYTES PERCENT AUTO 8 % (21-46); MONOCYTES ABSOLUTE AUTO 1.93 K/mm3 (0.16-1.47); MONOCYTES PERCENT AUTO 12 % (4-13); Mean Corpuscular HGB Conc 33.2 g/dL (31.5-36.5); Mean Corpuscular Volume 78 fL (80-100); NEUTROPHILS PERCENT AUTO 77 % (41-73); Platelet Count 314 K/mm3 (150-400); RDW Coefficient Variation 22.8 % (11.7-14.2); RDW Standard Deviation 63.1 fL (35.1-46.3); Red Blood Cell Count 4.61 M/mm3 (4.30-5.90); White Blood Cell Count 15.93 K/mm3 (4.00-11.30)
[2023-03-20 04:42] LABS: Vancomycin, Trough 14.3 ug/mL (5.0-10.0)
[2023-03-20 04:50] LABS: Bun/Creatinine Ratio 18.6 (12.0-20.0); Calcium, Blood 8.4 mg/dL (8.5-10.1); Creatinine, Blood 0.7 mg/dL (0.60-1.20); Potassium, Blood 3.2 mmol/L (3.5-5.5)
[2023-03-20 07:39] VITALS: BP 143/61
[2023-03-20 15:23] VITALS: BP 138/88
--- NOTE | 2023-03-20 15:41 | NUR ---
WOUND CARE PT WITH PARTIAL THICKNESS ULCER TO ANTERIOR RLE FROM NON INTACT BLISTER. WOUND CLEANSED WITH NS, XEROFORM TO WOUND BED, COVERED ABD, ROLLED GAUZE, BANDANET. PT TOLERATED WELL. ENCOURAGED ELEVATION. WOUND PHOTO AND ASSESSMENT IN HARD CHART. [facility]
--- NOTE | 2023-03-20 16:33 | NUR ---
SHIFT SUMMARY PATIENT IS ALERT AND ORIENTED. PATIENT HAS HAD NO ACUTE EVENTS THIS SHIFT. VITAL SIGNS REVIEWED. PATIENT HAS BEEN RESTING MOST OF SHIFT. PATIENTS CELLULITIS HAS IMPROVED SLIGHTLY IN REDNESS AND WARMTH. PATIENT HAS NOT COMPLAINED OF PAIN, NAUSEA, SOB OR VOMITTING. BED IN LOCKED AND LOWEST POSITION. CALL LIGHT IN PLACE. WILL MONITOR UNTIL SHIFT CHANGE.
[2023-03-20 19:05] VITALS: BP 131/50
[2023-03-21 04:47] VITALS: BP 119/92
[2023-03-21 07:14] VITALS: BP 147/80
[2023-03-21 15:23] VITALS: BP 142/52
--- NOTE | 2023-03-21 19:57 | NUR ---
SHIFT SUMMARY PT A&OX4 AND PLEASANT. INDPENDENT IN ROOM. WOUND CARE NURSE IN TO SEE PT AND CHANGE DRESSING ON RLE. MODERATE AMOUNT OF WEEPING FROM RLE. DRESSING CHANGED TWICE IN AFTERNOON D/T SATURATION. NO C/O PAIN. AT BEDSIDE IN AFTERNOON. BED IN LOWEST POSITION AND CALL LIGHT IN REACH.
[2023-03-21 20:29] VITALS: BP 140/72
[2023-03-22 04:46] VITALS: BP 148/74
[2023-03-22 06:36] LABS: BASOPHILS ABSOLUTE AUTO 0.05 K/mm3 (0.00-0.23); BASOPHILS PERCENT AUTO 0 % (0-2); EOSINOPHILS ABSOLUTE AUTO 0.01 K/mm3 (0.00-0.68); EOSINOPHILS PERCENT AUTO 0 % (0-6); Hemoglobin 11.9 g/dL (13.5-17.5); IMMATURE GRAN ABSOLUTE AUTO 0.22 K/mm3 (0.00-0.10); IMMATURE GRAN PERCENT AUTO 1 % (0-1); LYMPHOCYTES ABSOLUTE AUTO 1.45 K/mm3 (0.84-5.20); LYMPHOCYTES PERCENT AUTO 7 % (21-46); MONOCYTES ABSOLUTE AUTO 1.85 K/mm3 (0.16-1.47); MONOCYTES PERCENT AUTO 9 % (4-13); Mean Corpuscular HGB 26.3 pg (26.0-34.0); Mean Corpuscular HGB Conc 33.1 g/dL (31.5-36.5); Mean Corpuscular Volume 80 fL (80-100); Mean Platelet Volume 9.7 fL (9.1-12.4); NEUTROPHILS PERCENT AUTO 83 % (41-73); Platelet Count 563 K/mm3 (150-400); RDW Coefficient Variation 23.2 % (11.7-14.2); Red Blood Cell Count 4.53 M/mm3 (4.30-5.90); White Blood Cell Count 20.58 K/mm3 (4.00-11.30)
[2023-03-22 06:55] LABS: Albumin, Blood 2.5 g/dL (3.4-5.0); Albumin/Globulin Ratio 0.6 (0.8-1.8); Bilirubin, Total 0.4 mg/dL (0.1-1.0); Bun/Creatinine Ratio 24.4 (12.0-20.0); Calcium, Blood 8.6 mg/dL (8.5-10.1); Creatinine, Blood 0.66 mg/dL (0.60-1.20); Globulin, Blood 3.9 g/dL (2.2-4.0); Potassium, Blood 4.3 mmol/L (3.5-5.5); Total Protein, Blood 6.4 g/dL (6.4-8.2)
[2023-03-22 07:17] VITALS: BP 163/85
[2023-03-22 15:35] VITALS: BP 131/83
--- NOTE | 2023-03-22 15:53 | NUR ---
WOUND CARE RLE WOUND DRESSED PER ORDER. LIGHT COLIN COMPRESSION ADDED PER MD. PT ENCOURAGED ELEVATION WITH FOOT PUMPS FOR VENOUS RETURN AND USE OF IS FOR RESPIRATORY HEALTH. HE VOICED UNDERSTANDING. CELLULITIS BOUNDRY CONTINUES TO CONTRACT
[2023-03-22 19:11] VITALS: BP 139/60
--- NOTE | 2023-03-22 19:20 | NUR ---
SHIFT SUMMARY PT A&OX4 AND PLEASANT. INDEPENDENT IN ROOM. NO ACUTE CHANGES. DRESSINGS ON RLE CHANGED BY WOUND CARE NURSE IN AFTERNOON. LESS DRAINAGE NOTED ON BANDAGES TODAY. DR RAE REQUESTED RIGHT LEG TO BE WRAPPED IN COLIN BANDAGE TO PROVIDE LIGHT COMPRESSION. NO C/O PAIN. BED IN LOWEST POSITION AND CALL LIGHT IN REACH.
[2023-03-23 04:10] VITALS: BP 146/86
[2023-03-23 05:49] LABS: BASOPHILS ABSOLUTE AUTO 0.06 K/mm3 (0.00-0.23); BASOPHILS PERCENT AUTO 0 % (0-2); EOSINOPHILS ABSOLUTE AUTO 0.03 K/mm3 (0.00-0.68); EOSINOPHILS PERCENT AUTO 0 % (0-6); Hematocrit 36.7 % (37.0-53.0); IMMATURE GRAN ABSOLUTE AUTO 0.26 K/mm3 (0.00-0.10); IMMATURE GRAN PERCENT AUTO 1 % (0-1); LYMPHOCYTES ABSOLUTE AUTO 1.59 K/mm3 (0.84-5.20); LYMPHOCYTES PERCENT AUTO 9 % (21-46); MONOCYTES ABSOLUTE AUTO 1.94 K/mm3 (0.16-1.47); MONOCYTES PERCENT AUTO 10 % (4-13); Mean Corpuscular HGB 26.3 pg (26.0-34.0); Mean Corpuscular HGB Conc 32.7 g/dL (31.5-36.5); Mean Corpuscular Volume 80 fL (80-100); Mean Platelet Volume 9.6 fL (9.1-12.4); NEUTROPHILS ABSOLUTE AUTO 14.89 K/mm3 (1.96-9.15); NEUTROPHILS PERCENT AUTO 79 % (41-73); Platelet Count 623 K/mm3 (150-400); RDW Coefficient Variation 23.3 % (11.7-14.2); RDW Standard Deviation 66.4 fL (35.1-46.3); Red Blood Cell Count 4.57 M/mm3 (4.30-5.90); White Blood Cell Count 18.77 K/mm3 (4.00-11.30)
[2023-03-23 06:27] LABS: Albumin, Blood 2.6 g/dL (3.4-5.0); Albumin/Globulin Ratio 0.6 (0.8-1.8); Bilirubin, Total 0.4 mg/dL (0.1-1.0); Bun/Creatinine Ratio 24.5 (12.0-20.0); Creatinine, Blood 0.73 mg/dL (0.60-1.20); Globulin, Blood 4.1 g/dL (2.2-4.0); Potassium, Blood 4.5 mmol/L (3.5-5.5); Total Protein, Blood 6.7 g/dL (6.4-8.2)
[2023-03-23 07:34] VITALS: BP 162/92
--- NOTE | 2023-03-23 07:44 | NUR ---
pt sitting up on the side of the bed a/ox4, pleasant and cooperative with care, follows commands well, denies pain at this time, states a little soreness to back of right calf, lungs are a bit course t/o with faint wheeze at the end of exp, anterior is clear, has been on 2 liters durring the night, room air at this time, no cough noted, hrirr, murmur noted, recent valve replacement, edema noted to rle, ppp +1, cap refill <3sec, vs stable, afebrile iv site is clear and patent, btx4, abd flat soft nontender, voids without diff, skin c/w/s except right le, is pink, pink is receding from line, rossana bennett, call light in reach.
[2023-03-23] MEDS ORDERED: PRED20 PO (12:24)
[2023-03-23] MEDS ORDERED: CEPH500 PO (12:24)
--- NOTE | 2023-03-23 13:00 | NUR ---
WOUND CARE RLE DRESSED PER ORDER. EDEMA HAS DECREASED. CELLULITIS OUT LINE CONTINUES TO CONTRACT. PT TOLERATED WELL
--- NOTE | 2023-03-23 18:49 | NUR ---
pt will have a sleep study tonight and d/c to home tomorrow, doing ok, no needs or complaints this evening, no acute changes, dressing to leg was changed this am, call light in reach.
[2023-03-23 19:48] VITALS: BP 164/72
[2023-03-24 02:29] VITALS: BP 121/65
[2023-03-24 05:34] LABS: BASOPHILS ABSOLUTE AUTO 0.04 K/mm3 (0.00-0.23); BASOPHILS PERCENT AUTO 0 % (0-2); EOSINOPHILS ABSOLUTE AUTO 0.02 K/mm3 (0.00-0.68); EOSINOPHILS PERCENT AUTO 0 % (0-6); Hemoglobin 12.4 g/dL (13.5-17.5); IMMATURE GRAN ABSOLUTE AUTO 0.24 K/mm3 (0.00-0.10); IMMATURE GRAN PERCENT AUTO 2 % (0-1); LYMPHOCYTES ABSOLUTE AUTO 1.76 K/mm3 (0.84-5.20); LYMPHOCYTES PERCENT AUTO 12 % (21-46); MONOCYTES ABSOLUTE AUTO 1.57 K/mm3 (0.16-1.47); MONOCYTES PERCENT AUTO 10 % (4-13); Mean Corpuscular HGB 26.4 pg (26.0-34.0); Mean Corpuscular HGB Conc 32.6 g/dL (31.5-36.5); Mean Corpuscular Volume 81 fL (80-100); Mean Platelet Volume 9.4 fL (9.1-12.4); NEUTROPHILS ABSOLUTE AUTO 11.44 K/mm3 (1.96-9.15); NEUTROPHILS PERCENT AUTO 76 % (41-73); Platelet Count 684 K/mm3 (150-400); RDW Coefficient Variation 23.4 % (11.7-14.2); RDW Standard Deviation 67.1 fL (35.1-46.3); White Blood Cell Count 15.07 K/mm3 (4.00-11.30)
[2023-03-24 06:01] LABS: Albumin, Blood 2.7 g/dL (3.4-5.0); Albumin/Globulin Ratio 0.7 (0.8-1.8); Bilirubin, Total 0.6 mg/dL (0.1-1.0); Bun/Creatinine Ratio 26.8 (12.0-20.0); Calcium, Blood 8.9 mg/dL (8.5-10.1); Creatinine, Blood 0.71 mg/dL (0.60-1.20); Potassium, Blood 4.2 mmol/L (3.5-5.5); Total Protein, Blood 6.7 g/dL (6.4-8.2)
--- NOTE | 2023-03-24 06:33 | NUR ---
SHIFT SUMMARY: CAROL IS A&OX4. VSS, NO ACUTE EVENTS OVERNIGHT. RESPIRATORY THERAPY COMPLETED THE OVERNIGHT OXIMETRY THIS SHIFT, PRINTED RESULTS ON PT'S CHART. PT TOLERATING PO INTAKE WELL, INDEPENDENT TO THE BATHROOM, AND HAS DENIED THE NEED FOR PAIN MEDICATION THIS SHIFT. IV TO LEFT ARM PATENT. PT IS LYING IN BED WITH THE CALL LIGHT IN REACH. WCTM UNTIL REPORT IS GIVEN TO DAY SHIFT RN.
[2023-03-24 07:43] VITALS: BP 168/91
--- NOTE | 2023-03-24 10:46 | NUR ---
PT A&OX4, ANSWERS QUESTIONS APPROPRIATELY. VITAL SIGNS STABLE. ZOSYN GIVEN AT APPROXIMATELY 0830. PT GOING HOME WITH SUPPLEMENTAL OXYGEN AND DISCHARGED THIS MORNING AT 1030.
--- NOTE | 2023-03-24 13:50 | NUR ---
DISCHARGE HOME. Patient ready to DC home. Caremanager set oxygen to be delivered to patient at home. Finished OV ABX. Cellulitis improving. Patient left at 1040.
== END 2023-03-24 10:36 | disposition home or self-care (01) | DRG 603 ==
LOC: ER 10:38 → MEDS 16:35 → ENPENDDIS 03-17 15:05 → MEDS 03-24 10:36
PROVIDERS: Family Medicine; Physician Assistant; ADMIT Internal Medicine
DX: L03.115 Cellulitis of right lower limb (principal); I48.91 Unspecified atrial fibrillation; K21.9 Gastro-esophageal reflux disease without esophagitis; I10 Essential (primary) hypertension; I87.2 Venous insufficiency (chronic) (peripheral); I73.9 Peripheral vascular disease, unspecified; J43.9 Emphysema, unspecified; I35.0 Nonrheumatic aortic (valve) stenosis; M43.16 Spondylolisthesis, lumbar region; E87.6 Hypokalemia; M54.9 Dorsalgia, unspecified; G89.29 Other chronic pain; W18.30XA Fall on same level, unspecified, initial encounter; Z96.612 Presence of left artificial shoulder joint; Z96.659 Presence of unspecified artificial knee joint; Z88.8 Allergy status to other drugs, medicaments and biological substances; Z79.899 Other long term (current) drug therapy; Z87.891 Personal history of nicotine dependence; Z98.890 Other specified postprocedural states; Z79.01 Long term (current) use of anticoagulants; Z79.02 Long term (current) use of antithrombotics/antiplatelets; Z79.82 Long term (current) use of aspirin; Z90.81 Acquired absence of spleen; Z98.52 Vasectomy status; Z95.2 Presence of prosthetic heart valve
CPT/HCPCS: 36415; 71046; 73701; 80048; 80053; 80202; 82947; 83605; 83735; 83880; 85025; 85651; 86141; 87040; 93005; 93010; 93971; 94640; 94664; 94760; 94761; 94762; 96365; 96375; 99285-25; A9270; J0696; J2543; J3370; J7050; J7512; Q9967

== ENCOUNTER 2023-04-06 10:31 | Inpatient (IN) | payer MEDICARE, OTHER ==
[~2023-04-06] VITALS: Ht 172.7 cm; Wt 92.8 kg
[~2023-04-06 10:31] MED LIST changes: +CEPH500 PO; +FURO40 PO; +POTCHL20ER PO; +PRED20 PO
[2023-04-06 11:41] LABS: BASOPHILS ABSOLUTE AUTO 0.11 K/mm3 (0.00-0.23); BASOPHILS PERCENT AUTO 1 % (0-2); EOSINOPHILS ABSOLUTE AUTO 0.13 K/mm3 (0.00-0.68); EOSINOPHILS PERCENT AUTO 1 % (0-6); Hemoglobin 12.9 g/dL (13.5-17.5); IMMATURE GRAN PERCENT AUTO 1 % (0-1); LYMPHOCYTES PERCENT AUTO 10 % (21-46); MONOCYTES ABSOLUTE AUTO 1.95 K/mm3 (0.16-1.47); MONOCYTES PERCENT AUTO 14 % (4-13); Mean Corpuscular HGB Conc 33.1 g/dL (31.5-36.5); Mean Corpuscular Volume 82 fL (80-100); NEUTROPHILS ABSOLUTE AUTO 10.71 K/mm3 (1.96-9.15); NEUTROPHILS PERCENT AUTO 74 % (41-73); Platelet Count 297 K/mm3 (150-400); RDW Coefficient Variation 22.6 % (11.7-14.2); RDW Standard Deviation 65.9 fL (35.1-46.3); Red Blood Cell Count 4.78 M/mm3 (4.30-5.90)
[2023-04-06 11:44] LABS: Albumin, Blood 2.9 g/dL (3.4-5.0); Albumin/Globulin Ratio 0.7 (0.8-1.8); Bilirubin, Total 0.4 mg/dL (0.1-1.0); Bun/Creatinine Ratio 25.3 (12.0-20.0); Calcium, Blood 9.1 mg/dL (8.5-10.1); Creatinine, Blood 0.83 mg/dL (0.60-1.20); Globulin, Blood 4.4 g/dL (2.2-4.0); Potassium, Blood 4.5 mmol/L (3.5-5.5); Total Protein, Blood 7.3 g/dL (6.4-8.2)
[2023-04-06] MEDS ORDERED: FERSU300 PO (13:55)
[2023-04-06] MEDS ORDERED: TRELEGY ELLIPT1 EAC1 INH (13:55)
[2023-04-06 15:29] VITALS: BP 119/62
--- NOTE | 2023-04-06 15:43 | NUR ---
SHIFT SUMMARY PT ARRIVED FROM THE ED JUST AFTER 1500. NS GOING AT WO, 2 OF 2 BAGS HUNG. PT IS AOX4 AND INDEPENDENT TO THE BATHROOM. PT IS RESTING COMFORTABLY IN BED AFTER BEING ORIENTED TO THE ROOM. CALL LIGHT WITHIN REACH. ADMIT ASSESSMENT COMPLETED. WILL GIVE REPORT TO ONCOMING NURSE.
--- NOTE | 2023-04-06 20:01 | NUR ---
LATE ENTRY TOOK OVER CARE OF PT AROUND 1700. PT ALERT AND ORIENTED X4. INDEPENDENT IN THE ROOM. ABLE TO MAKE NEEDS KNOWN.
[2023-04-06 21:02] VITALS: BP 133/66
[2023-04-07 05:06] LABS: BASOPHILS ABSOLUTE AUTO 0.11 K/mm3 (0.00-0.23); BASOPHILS PERCENT AUTO 1 % (0-2); EOSINOPHILS ABSOLUTE AUTO 0.37 K/mm3 (0.00-0.68); EOSINOPHILS PERCENT AUTO 4 % (0-6); Hematocrit 32.8 % (37.0-53.0); Hemoglobin 10.7 g/dL (13.5-17.5); IMMATURE GRAN ABSOLUTE AUTO 0.05 K/mm3 (0.00-0.10); IMMATURE GRAN PERCENT AUTO 1 % (0-1); LYMPHOCYTES ABSOLUTE AUTO 1.28 K/mm3 (0.84-5.20); LYMPHOCYTES PERCENT AUTO 13 % (21-46); MONOCYTES ABSOLUTE AUTO 1.47 K/mm3 (0.16-1.47); MONOCYTES PERCENT AUTO 15 % (4-13); Mean Corpuscular HGB 26.6 pg (26.0-34.0); Mean Corpuscular HGB Conc 32.6 g/dL (31.5-36.5); Mean Corpuscular Volume 81 fL (80-100); NEUTROPHILS ABSOLUTE AUTO 6.43 K/mm3 (1.96-9.15); NEUTROPHILS PERCENT AUTO 66 % (41-73); Platelet Count 257 K/mm3 (150-400); RDW Coefficient Variation 22.1 % (11.7-14.2); RDW Standard Deviation 65.2 fL (35.1-46.3); Red Blood Cell Count 4.03 M/mm3 (4.30-5.90); White Blood Cell Count 9.71 K/mm3 (4.00-11.30)
[2023-04-07 05:26] LABS: Albumin, Blood 2.3 g/dL (3.4-5.0); Albumin/Globulin Ratio 0.6 (0.8-1.8); Bilirubin, Total 0.3 mg/dL (0.1-1.0); Bun/Creatinine Ratio 18.2 (12.0-20.0); Calcium, Blood 8.4 mg/dL (8.5-10.1); Creatinine, Blood 0.77 mg/dL (0.60-1.20); Globulin, Blood 3.6 g/dL (2.2-4.0); Potassium, Blood 3.9 mmol/L (3.5-5.5); Total Protein, Blood 5.9 g/dL (6.4-8.2)
--- NOTE | 2023-04-07 05:33 | NUR ---
SHIFT SUMMARY PT ADMIT FOR REBOUND CELLULITIS WITH ABSCESS. RT LEG LANCED YESTERDAY AND WRAPPED. PAIN AND INFECTION CONTROL OF HIGHEST PRIORITY DURING THIS SHIFT. PT IS INDEPENDENT AND IS EXPECTING A VISIT FROM WOUND CARE TODAY. CALM AND COOPERATIVE, THIS PT IS PLEASANT AND EAGER TO LEARN TO CARE FOR HIMSELF. SLEPT MOST OF SHIFT.
--- NOTE | 2023-04-07 05:50 | NUR ---
CTA NOTE I HAVE READ THE WELDING MACHINE OPERATOR RESISTANCE DOCUMENTATION AND I AGREE WITH IT. SHIFT SUMMARY FOUND IN WELDING MACHINE OPERATOR RESISTANCE NOTE
[2023-04-07 05:55] VITALS: BP 141/63
[2023-04-07 08:15] VITALS: BP 111/54
[2023-04-07 15:42] VITALS: BP 123/89
--- NOTE | 2023-04-07 16:55 | NUR ---
WOUND CARE WOUND PHOTO AND ASSESSMENT IN HARD CHART. WOUND CARE ORDERS IN [facility]. WOUND IRRIGATED WITH NS. 1/4' IODOFORM LOOSELY PACKED INTO WOUND, COVERED ABD, ROLLED GAUZE, BANDANET.
--- NOTE | 2023-04-07 17:11 | NUR ---
PT HAS BEEN PLEASANT TODAY. FAMILY IN TO VISIT TODAY. MADHAVI, WOUND CENTER RN, IN TO CHANGE DRESSING TODAY. SHE TOOK PICS. DR CARMONA IN ROOM AND DID DISCUSS HAVING DR LARRY IN TOMORROW TO SEE. STATES HE TALKED TO DR DIRECTLY. WILL MAKE NPO MIDNITE FOR SAFETY FOR POSS REVASCULARIZATION. PT CONTINUES ABX ODRDERED. NO NEW CONCERNS NOTED. BED IN LOW POSITION, CALL LITE IN REACH, CALLS APPROP
[2023-04-07 20:20] VITALS: BP 125/55
[2023-04-07 22:55] LABS: Vancomycin, Trough 14.4 ug/mL (5.0-10.0)
[2023-04-08] VITALS (15 sets, daily range): BP systolic 117–155; BP diastolic 59–102
--- NOTE | 2023-04-08 04:37 | NUR ---
SHIFT SUMMARY: PT A&O X4. PT PLEASANT AND COOPERATIVE WITH CARE. PT PLACED ON NPO AFTER MIDNIGHT DUE TO POSSIBILITY OF ANGIOGRAM/REVASCULARIZATION. CALL PLACED TO DR. LARRY BY FOR CONSULT. CALL FROM [employer] AT 2340 STATING PT WAS HAVING ST DEPRESSION. EKG OBTAINED SHOWING AFIB WITH BUNDLE BRANCH BLOCK. ENTERED WRONG ORDER AND STATED "ST ELEVATION" FOR REASONING. NEW ORDER PLACED WITH CORRECT REASON FOR OBTAINING EKG. PT INDEPENDENT IN ROOM. PT RECEIVED VANCO AND ZOSYN IV W/O COMPLICATIONS. WOUND NURSE WRAPPED PT R. LEG. PICTURES OF WOUND IN CHART. CALL LIGHT IN REACH. BED IN LOWEST POSITION. WILL CONTINUE TO MONITOR.
--- NOTE | 2023-04-08 11:07 | NUR ---
PROCEDURE: PT LIKELY TO HAVE PROCEDURE WITH DR LARRY THIS AFTERNOON. HEPARIN HELD PER DR CARMONA. PT REMAINS NPO.
--- NOTE | 2023-04-08 16:45 | NUR ---
PROCEDURE: PT TO HEART CENTER AT THIS TIME. PLAN TO TX TO PCU POST PROCEDURE. REPORT GIVEN TO ACCEPTING RN.
--- NOTE | 2023-04-08 19:04 | NUR ---
TRANSFER NOTE TRANSFER TO UNIT FROM MED FLOOR VIA EXHIBIT SPECIALIST FOR PROCEDURE. OBTAINED REPORT FROM ALESIA ABEBE RN ON MED FLOOR. OBTAINED BEDSIDE REPORT FROM EXHIBIT SPECIALIST RN. ARRIVED TO ROOM IN BED. ALERT AND ORIENTED. BEDREST FOR AT LEAST 2 HOURS POST PROCEDURE. UNDERWENT A REVASC WITH DR LARRY OF RLE, BALLOONED IN TWO PLACES. LEFT FEMORAL ACCESS SITE SOFT, NON-TENDER, NO HEMATOMA. TEGADERM INTACT. REPORTS FULL SENSATION TO BLE, WIGGLES ANKLES AND TOES. STRONG PEDAL PULSES. WOUND TO RLE WRAPPED IN KERLEX, CHANGED BY EXHIBIT SPECIALIST NURSING. WOUND CARE IS FOLLOWING, PICTURE IN BINDER. POST VSS. SPOUSE PRESENT FOR BRIEF TIME. PATIENT STATES HE IS NOT HUNGRY AND WANTS TO SLEEP. TELE AFIB 104. 1800 ZOSYN RUNNING.
[2023-04-09] VITALS: BP 114/67
[2023-04-09 04:34] VITALS: BP 133/73
--- NOTE | 2023-04-09 06:31 | NUR ---
ASSUMED CARE PATIENT IN BED RESTING WITH COMPLAINTS OF PAIN TO RLE. PATIENT IS A&OX4, NO FAMILY AT BEDSIDE. RLE DRESSING IS LOOSE AND FALLING DOWN. SEE ASSESSMENT NOTES.
[2023-04-09 07:15] VITALS: BP 134/93
[2023-04-09 11:39] VITALS: BP 120/75
--- NOTE | 2023-04-09 14:00 | NUR ---
TRANSFER TO 226 PATIENT TRANSFERRED TO SURGICAL UNIT VIA W/C FROM PCU. A&O X4, VERY PLEASANT GENTLEMAN. DRESSING TO RLE IS C/D/I. REDNESS NOTED T/O RIGHT LEG. PATIENT DENIES PAIN AT THIS TIME. ORIENTED TOR OOM & CALL LIGHT, IN REACH.
--- NOTE | 2023-04-09 14:11 | NUR ---
MORNING SUMMARY ALERT, ORIENTED, [place]. RLE CELLULITIS RED, DRY, AND MOD SWOLLEN FROM ANKLE TO KNEE. SMALL OPEN WOUND ON MIDDLE OF PADILLA. DRESSING CHANGED: PLAIN /4 PACKING STRIP, SMALL NON-ADHERENT PAD, GAUZE, KERLEX ROLL, KERLEX NETTING. REPORTS FULL SENSATION TO BLE. WIGGLES ANKLES AND TOES. BILAT PALP PEDAL PULSES. RATES RLE PAIN 6/10, MANAGED WITH PO MEDS PER EMAR. LEFT FEM ACCESS WNL, TEGADERM INTACT. SBA WITH FWW TO BATHROOM AND UP TO RECLINER. TOLERATING CARDIAC DIET AND LIQUIDS. ROOM AIR. VSS. NEW POWERGLIDE PLACED TO RUE. PLAN FOR POSSIBLE I&D TOMORROW 04/10/23, NPO AFTER MIDNIGHT. HOLD THINNERS. REPORT GIVEN TO SURGICAL FLOOR RAMIRO BLACKWELL. PATIENT TRANSFERRED TO ROOM 226 VIA WHEELCHAIR AT 1345. CONTINUE IV ANDREW SCHMID DC'D BY DR CARMONA DUE TO NEG CULTURE.
[2023-04-09 15:13] VITALS: BP 119/50
--- NOTE | 2023-04-09 18:21 | NUR ---
NO ACUTE CHANGES SINCE TRANSFER. PATIENT EATING, DRINKING, & VOIDING WELL. VSS, A&O X4, IND TO BATHROOM AND TO EDGE OF BED. IV ABX PER EMAR. PLEASANT & COOPERATIVE. CALL LIGHT IN REACH, WILL REPORT TO ONCANNETTE RN AT 1900.
[2023-04-09 19:31] VITALS: BP 102/61
[2023-04-10 04:53] VITALS: BP 111/55
[2023-04-10 06:25] LABS: BASOPHILS ABSOLUTE AUTO 0.07 K/mm3 (0.00-0.23); BASOPHILS PERCENT AUTO 1 % (0-2); EOSINOPHILS ABSOLUTE AUTO 0.48 K/mm3 (0.00-0.68); EOSINOPHILS PERCENT AUTO 4 % (0-6); Hematocrit 35.7 % (37.0-53.0); Hemoglobin 11.8 g/dL (13.5-17.5); IMMATURE GRAN ABSOLUTE AUTO 0.06 K/mm3 (0.00-0.10); IMMATURE GRAN PERCENT AUTO 1 % (0-1); LYMPHOCYTES ABSOLUTE AUTO 1.66 K/mm3 (0.84-5.20); LYMPHOCYTES PERCENT AUTO 15 % (21-46); MONOCYTES ABSOLUTE AUTO 1.51 K/mm3 (0.16-1.47); MONOCYTES PERCENT AUTO 13 % (4-13); Mean Corpuscular HGB 26.7 pg (26.0-34.0); Mean Corpuscular HGB Conc 33.1 g/dL (31.5-36.5); Mean Corpuscular Volume 81 fL (80-100); Mean Platelet Volume 9.7 fL (9.1-12.4); NEUTROPHILS ABSOLUTE AUTO 7.59 K/mm3 (1.96-9.15); NEUTROPHILS PERCENT AUTO 67 % (41-73); Platelet Count 273 K/mm3 (150-400); RDW Coefficient Variation 22.1 % (11.7-14.2); RDW Standard Deviation 64.5 fL (35.1-46.3); Red Blood Cell Count 4.42 M/mm3 (4.30-5.90); White Blood Cell Count 11.37 K/mm3 (4.00-11.30)
[2023-04-10 06:44] LABS: Albumin, Blood 2.6 g/dL (3.4-5.0); Albumin/Globulin Ratio 0.6 (0.8-1.8); Bilirubin, Total 0.3 mg/dL (0.1-1.0); Bun/Creatinine Ratio 19.4 (12.0-20.0); Calcium, Blood 8.5 mg/dL (8.5-10.1); Creatinine, Blood 1.08 mg/dL (0.60-1.20); Globulin, Blood 4.3 g/dL (2.2-4.0); Potassium, Blood 3.9 mmol/L (3.5-5.5); Total Protein, Blood 6.9 g/dL (6.4-8.2)
[2023-04-10 06:57] VITALS: BP 129/57
--- NOTE | 2023-04-10 07:53 | NUR ---
summary pt slept between antibiotics, med po for pain tonight. pulses present per doppler.
--- NOTE | 2023-04-10 09:55 | NUR ---
MORNING NOTE VSS. AOX4, [place]. DR. JEFFERY ROUNDED THIS MORNING, DETERMINED NO NEED FOR I/D PROCEDURE. DRESSING CHANGED BY DR. JEFFERY, 4X4 GAUZE OVER OPEN WOUND ON PADILLA, GAUZE WRAP & KERLIX KNETTING APPLIED. BOWLING ALLEY MECHANIC TO APPLY NEW DRESSING THIS SHIFT. REDNESS, DRYNESS ASSESSED FROM KNEE TO ANKLE. MILD SWELLING. L FEMORAL ACCESS SITE WNL, TEGADERM IN PLACE. UP W/ SBA, USES URINAL. NO NEEDS AT THIS TIME. CALL LIGHT WITHIN REACH.
--- NOTE | 2023-04-10 10:32 | NUR ---
DR LARIOS IN TO SEE PT.
[2023-04-10 14:20] VITALS: BP 112/62
[2023-04-10] MEDS ORDERED: SULTRIDS PO (14:46)
--- NOTE | 2023-04-10 15:42 | NUR ---
DISCHARGE SUMMARY CELLULITIS OF RLE, NONSURGICAL. AOX4. VSS. RLE DRESSING C/D/I, CHANGED TODAY BY WOUND RN. L GROIN SITE FROM REVASCULARIZATION PROCEDURE WNL, TEGADERM IN PLACE W/ INSTRUCTION TO RMVE FOLLOWING A SHOWER TONIGHT. PAIN TOLERABLE W/ PRESCRIBED MEDICATION. BOTH PT & SPOUSE AGREE W/ DC PLAN, EDUCATION PROVIDED. POWERGLIDE RMVD. PT TRANSFERRED TO PERSONAL VEHICLE VIA .
--- NOTE | 2023-04-10 16:09 | NUR ---
REVIEWED SN DOCUMENTATION.
== END 2023-04-10 15:52 | disposition home or self-care (01) | DRG 603 ==
LOC: ER 10:31 → SURS 12:52 → MEDS 12:52 → PCU 04-08 16:54 → SURS 04-09 13:49
PROVIDERS: Student in an Organized Health Care Education/Training Program; ADMIT Internal Medicine
DX: L03.115 Cellulitis of right lower limb (principal); I99.8 Other disorder of circulatory system; L02.415 Cutaneous abscess of right lower limb; I48.91 Unspecified atrial fibrillation; G89.29 Other chronic pain; M54.9 Dorsalgia, unspecified; J44.9 Chronic obstructive pulmonary disease, unspecified; K21.9 Gastro-esophageal reflux disease without esophagitis; I73.9 Peripheral vascular disease, unspecified; F10.20 Alcohol dependence, uncomplicated; F17.200 Nicotine dependence, unspecified, uncomplicated; Z88.6 Allergy status to analgesic agent; Z98.890 Other specified postprocedural states; Z96.612 Presence of left artificial shoulder joint; Z79.899 Other long term (current) drug therapy; Z79.2 Long term (current) use of antibiotics; Z79.01 Long term (current) use of anticoagulants; Z79.82 Long term (current) use of aspirin; Z90.81 Acquired absence of spleen; Z96.651 Presence of right artificial knee joint; Z96.642 Presence of left artificial hip joint
CPT/HCPCS: 36415; 73590; 76937; 80053; 80202; 82565; 83605; 85025; 86140; 87040; 87070; 87075; 87205; 93005; 93010; 94640; 94664; 94760; 96365; 96366; 96367; 96372; 96376; 99152; 99153; 99285-25; A9270; C1725; C1751; C1760; C1769; C1887; C1894; G0378; J1644; J2250; J2270; J2543; J3010; J3370; J7030; J7050; Q9967

== ENCOUNTER → 2023-04-19 | Day surgery (SDC) | payer MEDICARE, OTHER ==
[~2023-04-19] MED LIST changes: +FERSU300 PO; +SULTRIDS PO; +TRELEGY ELLIPT1 EAC1 INH
== END ==
LOC: WOUND 03:00
DX: L03.115 Cellulitis of right lower limb (principal); I10 Essential (primary) hypertension
CPT/HCPCS: A9270; G0463

== ENCOUNTER 2023-05-10 04:27 | Day surgery (SDC) | payer MEDICARE, OTHER | END 2023-05-10 22:47 | disposition home or self-care (01) | LOC: WOUND 04:27 | DX: L03.115 Cellulitis of right lower limb (principal); I87.311 Chronic venous hypertension (idiopathic) with ulcer of right lower extremity; L97.815 Non-pressure chronic ulcer of other part of right lower leg with muscle involvement without evidence of necrosis; L97.812 Non-pressure chronic ulcer of other part of right lower leg with fat layer exposed; I87.2 Venous insufficiency (chronic) (peripheral); I10 Essential (primary) hypertension; I73.9 Peripheral vascular disease, unspecified | CPT/HCPCS: A9270 ==

== ENCOUNTER 2023-05-17 01:53 | Day surgery (SDC) | payer MEDICARE, OTHER | END 2023-05-17 22:55 | disposition home or self-care (01) | LOC: WOUND 01:53 | DX: I87.311 Chronic venous hypertension (idiopathic) with ulcer of right lower extremity (principal); L97.812 Non-pressure chronic ulcer of other part of right lower leg with fat layer exposed; L03.115 Cellulitis of right lower limb; I87.2 Venous insufficiency (chronic) (peripheral); I10 Essential (primary) hypertension; I73.9 Peripheral vascular disease, unspecified | CPT/HCPCS: A9270 ==

== ENCOUNTER 2023-05-31 01:17 | Day surgery (SDC) | payer MEDICARE, OTHER | END 2023-05-31 23:20 | disposition home or self-care (01) | LOC: WOUND 01:17 | DX: I87.311 Chronic venous hypertension (idiopathic) with ulcer of right lower extremity (principal); L03.115 Cellulitis of right lower limb; L97.812 Non-pressure chronic ulcer of other part of right lower leg with fat layer exposed; L97.815 Non-pressure chronic ulcer of other part of right lower leg with muscle involvement without evidence of necrosis; I87.2 Venous insufficiency (chronic) (peripheral); I10 Essential (primary) hypertension; I73.9 Peripheral vascular disease, unspecified | CPT/HCPCS: A9270 ==

== ENCOUNTER 2023-06-07 02:09 | Day surgery (SDC) | payer MEDICARE, OTHER | END 2023-06-07 22:58 | disposition home or self-care (01) | LOC: WOUND 02:09 | DX: I87.311 Chronic venous hypertension (idiopathic) with ulcer of right lower extremity (principal); L97.815 Non-pressure chronic ulcer of other part of right lower leg with muscle involvement without evidence of necrosis; L97.812 Non-pressure chronic ulcer of other part of right lower leg with fat layer exposed; L03.115 Cellulitis of right lower limb; I87.2 Venous insufficiency (chronic) (peripheral); I10 Essential (primary) hypertension; I73.9 Peripheral vascular disease, unspecified | CPT/HCPCS: A9270 ==

== ENCOUNTER 2023-06-14 02:37 | Day surgery (SDC) | payer MEDICARE, OTHER | END 2023-06-14 23:11 | disposition home or self-care (01) | LOC: WOUND 02:37 | DX: L03.115 Cellulitis of right lower limb (principal); L97.812 Non-pressure chronic ulcer of other part of right lower leg with fat layer exposed; I87.311 Chronic venous hypertension (idiopathic) with ulcer of right lower extremity; I87.2 Venous insufficiency (chronic) (peripheral); I10 Essential (primary) hypertension; I73.9 Peripheral vascular disease, unspecified | CPT/HCPCS: A9270; G0463 ==

== ENCOUNTER 2023-06-21 05:41 | Day surgery (SDC) | payer MEDICARE, OTHER | END 2023-06-21 22:48 | disposition home or self-care (01) | LOC: WOUND 05:41 | DX: I87.311 Chronic venous hypertension (idiopathic) with ulcer of right lower extremity (principal); L97.812 Non-pressure chronic ulcer of other part of right lower leg with fat layer exposed; L97.815 Non-pressure chronic ulcer of other part of right lower leg with muscle involvement without evidence of necrosis; L03.115 Cellulitis of right lower limb; I87.2 Venous insufficiency (chronic) (peripheral); I10 Essential (primary) hypertension; I73.9 Peripheral vascular disease, unspecified | CPT/HCPCS: A9270 ==

== ENCOUNTER 2023-06-28 02:40 | Day surgery (SDC) | payer MEDICARE, OTHER | END 2023-06-28 22:56 | disposition home or self-care (01) | LOC: WOUND 02:40 | DX: I87.311 Chronic venous hypertension (idiopathic) with ulcer of right lower extremity (principal); L03.115 Cellulitis of right lower limb; L97.812 Non-pressure chronic ulcer of other part of right lower leg with fat layer exposed; I87.2 Venous insufficiency (chronic) (peripheral); I10 Essential (primary) hypertension; I73.9 Peripheral vascular disease, unspecified | CPT/HCPCS: A9270 ==

== ENCOUNTER 2023-07-05 01:13 | Day surgery (SDC) | payer MEDICARE, OTHER | END 2023-07-05 22:51 | disposition home or self-care (01) | LOC: WOUND 01:13 | DX: L03.115 Cellulitis of right lower limb (principal); L97.812 Non-pressure chronic ulcer of other part of right lower leg with fat layer exposed; I87.311 Chronic venous hypertension (idiopathic) with ulcer of right lower extremity; I87.2 Venous insufficiency (chronic) (peripheral); I10 Essential (primary) hypertension; I73.9 Peripheral vascular disease, unspecified | CPT/HCPCS: A9270 ==

== ENCOUNTER 2023-07-12 07:44 | Day surgery (SDC) | payer MEDICARE, OTHER | END 2023-07-12 23:03 | disposition home or self-care (01) | LOC: WOUND 07:44 | DX: L03.115 Cellulitis of right lower limb (principal); I87.311 Chronic venous hypertension (idiopathic) with ulcer of right lower extremity; L97.815 Non-pressure chronic ulcer of other part of right lower leg with muscle involvement without evidence of necrosis; I87.2 Venous insufficiency (chronic) (peripheral); I10 Essential (primary) hypertension; I73.9 Peripheral vascular disease, unspecified | CPT/HCPCS: A9270 ==

== ENCOUNTER 2023-07-14 00:44 | Day surgery (SDC) | payer MEDICARE, OTHER | END 2023-07-14 22:54 | disposition home or self-care (01) | LOC: WOUND 00:44 | DX: I87.311 Chronic venous hypertension (idiopathic) with ulcer of right lower extremity (principal); L97.815 Non-pressure chronic ulcer of other part of right lower leg with muscle involvement without evidence of necrosis; L03.115 Cellulitis of right lower limb; I10 Essential (primary) hypertension ==

== ENCOUNTER 2023-07-19 04:34 | Day surgery (SDC) | payer MEDICARE, OTHER | END 2023-07-19 23:02 | disposition home or self-care (01) | LOC: WOUND 04:34 | DX: L97.812 Non-pressure chronic ulcer of other part of right lower leg with fat layer exposed (principal); L97.815 Non-pressure chronic ulcer of other part of right lower leg with muscle involvement without evidence of necrosis; I87.311 Chronic venous hypertension (idiopathic) with ulcer of right lower extremity; L03.115 Cellulitis of right lower limb; I87.2 Venous insufficiency (chronic) (peripheral); I10 Essential (primary) hypertension; I73.9 Peripheral vascular disease, unspecified | CPT/HCPCS: A9270 ==

== ENCOUNTER 2023-07-26 04:46 | Day surgery (SDC) | payer MEDICARE, OTHER | END 2023-07-26 23:00 | disposition home or self-care (01) | LOC: WOUND 04:46 | DX: I87.311 Chronic venous hypertension (idiopathic) with ulcer of right lower extremity (principal); I10 Essential (primary) hypertension; L03.115 Cellulitis of right lower limb; L97.812 Non-pressure chronic ulcer of other part of right lower leg with fat layer exposed | CPT/HCPCS: A9270 ==

== ENCOUNTER 2023-08-09 01:58 | Day surgery (SDC) | payer MEDICARE, OTHER | END 2023-08-09 23:58 | disposition home or self-care (01) | LOC: WOUND 01:58 | DX: L03.115 Cellulitis of right lower limb (principal); L97.812 Non-pressure chronic ulcer of other part of right lower leg with fat layer exposed; L97.815 Non-pressure chronic ulcer of other part of right lower leg with muscle involvement without evidence of necrosis; I87.311 Chronic venous hypertension (idiopathic) with ulcer of right lower extremity; I87.2 Venous insufficiency (chronic) (peripheral); I10 Essential (primary) hypertension; I73.9 Peripheral vascular disease, unspecified | CPT/HCPCS: A9270 ==

== ENCOUNTER 2023-08-16 02:34 | Day surgery (SDC) | payer MEDICARE, OTHER | END 2023-08-16 23:30 | disposition home or self-care (01) | LOC: WOUND 02:34 | DX: L03.115 Cellulitis of right lower limb (principal); L97.812 Non-pressure chronic ulcer of other part of right lower leg with fat layer exposed; L97.815 Non-pressure chronic ulcer of other part of right lower leg with muscle involvement without evidence of necrosis; I87.311 Chronic venous hypertension (idiopathic) with ulcer of right lower extremity; I87.2 Venous insufficiency (chronic) (peripheral); I10 Essential (primary) hypertension; I73.9 Peripheral vascular disease, unspecified | CPT/HCPCS: A9270 ==

== ENCOUNTER 2023-08-23 04:59 | Day surgery (SDC) | payer MEDICARE, OTHER | END 2023-08-23 23:12 | disposition home or self-care (01) | LOC: WOUND 04:59 | DX: I87.311 Chronic venous hypertension (idiopathic) with ulcer of right lower extremity (principal); L97.812 Non-pressure chronic ulcer of other part of right lower leg with fat layer exposed; L97.815 Non-pressure chronic ulcer of other part of right lower leg with muscle involvement without evidence of necrosis; L03.115 Cellulitis of right lower limb; I10 Essential (primary) hypertension; I73.9 Peripheral vascular disease, unspecified | CPT/HCPCS: A9270 ==

== ENCOUNTER 2023-08-30 02:28 | Day surgery (SDC) | payer MEDICARE, OTHER | END 2023-08-30 22:59 | disposition home or self-care (01) | LOC: WOUND 02:28 | DX: I87.311 Chronic venous hypertension (idiopathic) with ulcer of right lower extremity (principal); L97.812 Non-pressure chronic ulcer of other part of right lower leg with fat layer exposed; L97.815 Non-pressure chronic ulcer of other part of right lower leg with muscle involvement without evidence of necrosis; L03.115 Cellulitis of right lower limb; I87.2 Venous insufficiency (chronic) (peripheral); I10 Essential (primary) hypertension; I73.9 Peripheral vascular disease, unspecified | CPT/HCPCS: A9270; G0463 ==

== ENCOUNTER 2023-09-06 04:55 | Day surgery (SDC) | payer MEDICARE, OTHER | END 2023-09-06 23:32 | disposition home or self-care (01) | LOC: WOUND 04:55 | DX: I87.311 Chronic venous hypertension (idiopathic) with ulcer of right lower extremity (principal); L97.812 Non-pressure chronic ulcer of other part of right lower leg with fat layer exposed; L97.815 Non-pressure chronic ulcer of other part of right lower leg with muscle involvement without evidence of necrosis; L03.115 Cellulitis of right lower limb; I87.2 Venous insufficiency (chronic) (peripheral); I10 Essential (primary) hypertension; I73.9 Peripheral vascular disease, unspecified ==

== ENCOUNTER 2023-09-13 01:52 | Day surgery (SDC) | payer MEDICARE, OTHER | END 2023-09-13 22:56 | disposition home or self-care (01) | LOC: WOUND | DX: I87.311 Chronic venous hypertension (idiopathic) with ulcer of right lower extremity (principal); L97.812 Non-pressure chronic ulcer of other part of right lower leg with fat layer exposed; L03.115 Cellulitis of right lower limb; I10 Essential (primary) hypertension; I73.9 Peripheral vascular disease, unspecified ==

== ENCOUNTER 2023-09-20 06:05 | Day surgery (SDC) | payer MEDICARE, OTHER | END 2023-09-20 23:04 | disposition home or self-care (01) | LOC: WOUND 06:05 | DX: I87.311 Chronic venous hypertension (idiopathic) with ulcer of right lower extremity (principal); L97.812 Non-pressure chronic ulcer of other part of right lower leg with fat layer exposed; L97.815 Non-pressure chronic ulcer of other part of right lower leg with muscle involvement without evidence of necrosis; L03.115 Cellulitis of right lower limb; I10 Essential (primary) hypertension; I73.9 Peripheral vascular disease, unspecified | CPT/HCPCS: G0463 ==

== ENCOUNTER 2023-09-27 02:21 | Day surgery (SDC) | payer MEDICARE, OTHER | END 2023-09-27 23:13 | disposition home or self-care (01) | LOC: WOUND 02:21 | DX: I87.311 Chronic venous hypertension (idiopathic) with ulcer of right lower extremity (principal); L97.812 Non-pressure chronic ulcer of other part of right lower leg with fat layer exposed; L97.815 Non-pressure chronic ulcer of other part of right lower leg with muscle involvement without evidence of necrosis; L03.115 Cellulitis of right lower limb; I73.9 Peripheral vascular disease, unspecified; I10 Essential (primary) hypertension; R60.1 Generalized edema | CPT/HCPCS: G0463 ==

== ENCOUNTER 2023-10-04 01:49 | Day surgery (SDC) | payer MEDICARE, OTHER | END 2023-10-04 22:41 | disposition home or self-care (01) | LOC: WOUND 01:49 | DX: Z09 Encounter for follow-up examination after completed treatment for conditions other than malignant neoplasm (principal) | CPT/HCPCS: G0463 ==

== ENCOUNTER 2024-12-28 12:46 | Emergency (ER) | payer MEDICARE, OTHER ==
[~2024-12-28] VITALS: Ht 172.7 cm; Wt 95.2 kg
[2024-12-28 13:49] LABS: BASOPHILS ABSOLUTE AUTO 0.07 K/mm3 (0.00-0.23); BASOPHILS PERCENT AUTO 1 % (0-2); EOSINOPHILS ABSOLUTE AUTO 0.17 K/mm3 (0.00-0.68); EOSINOPHILS PERCENT AUTO 2 % (0-6); Hematocrit 32.6 % (37.0-53.0); Hemoglobin 10.2 g/dL (13.5-17.5); IMMATURE GRAN ABSOLUTE AUTO 0.03 K/mm3 (0.00-0.10); IMMATURE GRAN PERCENT AUTO 0 % (0-1); LYMPHOCYTES ABSOLUTE AUTO 1.43 K/mm3 (0.84-5.20); LYMPHOCYTES PERCENT AUTO 15 % (21-46); MONOCYTES ABSOLUTE AUTO 1.28 K/mm3 (0.16-1.47); MONOCYTES PERCENT AUTO 13 % (4-13); Mean Corpuscular HGB 22.6 pg (26.0-34.0); Mean Corpuscular HGB Conc 31.3 g/dL (31.5-36.5); Mean Corpuscular Volume 72 fL (80-100); Mean Platelet Volume 9.2 fL (9.1-12.4); NEUTROPHILS ABSOLUTE AUTO 6.69 K/mm3 (1.96-9.15); NEUTROPHILS PERCENT AUTO 69 % (41-73); Platelet Count 362 K/mm3 (150-400); RDW Standard Deviation 58.5 fL (35.1-46.3); Red Blood Cell Count 4.51 M/mm3 (4.30-5.90); White Blood Cell Count 9.67 K/mm3 (4.00-11.30)
[2024-12-28 14:03] LABS: Influenza A, PCR NEGATIVE (NEGATIVE); Influenza B, PCR NEGATIVE (NEGATIVE); Resp Syncytial Virus, PCR NEGATIVE (NEGATIVE); SARS-Cov-2 (COVID-19) PCR, MMC NEGATIVE (NEGATIVE)
[2024-12-28 14:28] LABS: Albumin, Blood 3.5 g/dL (3.4-5.0); Albumin/Globulin Ratio 1.2 (0.8-1.8); Bilirubin, Total 0.4 mg/dL (0.1-1.0); Bun/Creatinine Ratio 14.1 (12.0-20.0); Calcium, Blood 8.5 mg/dL (8.5-10.1); Creatinine, Blood 0.57 mg/dL (0.60-1.20); Potassium, Blood 3.5 mmol/L (3.5-5.5); Total Protein, Blood 6.5 g/dL (6.4-8.2)
[2024-12-28] MEDS ORDERED: Ipratropium Bromide INH 0.02% 0.5 mg/2.5ML Vial INH SCH (15:10)
[2024-12-28] MEDS ORDERED: Albuterol 2.5 MG/3 ML VIAL INH SCH (15:10)
[2024-12-28] MEDS ORDERED: MethylPREDNISolone Sod Succ 125 MG Vial IV ONE (15:10)
[2024-12-28 16:45] VITALS: BP 175/67
[2024-12-28] MEDS ORDERED: PRED20 PO (17:13)
[2024-12-28] MEDS ORDERED: HYDCHL25 PO (17:13)
== END 2024-12-28 17:20 | disposition home or self-care (01) ==
LOC: ER 12:46
PROVIDERS: Student in an Organized Health Care Education/Training Program
DX: J44.1 Chronic obstructive pulmonary disease with (acute) exacerbation (principal); J81.1 Chronic pulmonary edema; K21.9 Gastro-esophageal reflux disease without esophagitis; I10 Essential (primary) hypertension; I48.91 Unspecified atrial fibrillation; Z87.891 Personal history of nicotine dependence; Z79.899 Other long term (current) drug therapy; R06.02 Shortness of breath
CPT/HCPCS: 0241U; 71046; 80053; 83880; 84484; 85025; 93005; 93010; 94644; 94664; 96374; 99285-25; J2919

== ENCOUNTER → 2024-12-28 | Outpatient (CLI) | payer MEDICARE, OTHER ==
[~2024-12-28] MED LIST changes: +Aspir 8181 MG PO; +BENAZEPRIL HCL40 M1 PO; +DILT120ERA PO; -ELIQUIS2.5 M1 PO; +ELIQUIS2.5 MG PO; +ELIQUIS5 M2 PO; +OMEP20ER PO; +Pentoxifylline400 MG PO
[2024-12-28 10:29] LABS: BASOPHILS ABSOLUTE AUTO 0.08 K/mm3 (0.00-0.23); BASOPHILS PERCENT AUTO 1 % (0-2); EOSINOPHILS PERCENT AUTO 3 % (0-6); Hematocrit 33.6 % (37.0-53.0); Hemoglobin 10.5 g/dL (13.5-17.5); IMMATURE GRAN ABSOLUTE AUTO 0.04 K/mm3 (0.00-0.10); IMMATURE GRAN PERCENT AUTO 0 % (0-1); LYMPHOCYTES ABSOLUTE AUTO 1.34 K/mm3 (0.84-5.20); LYMPHOCYTES PERCENT AUTO 14 % (21-46); MONOCYTES ABSOLUTE AUTO 1.45 K/mm3 (0.16-1.47); MONOCYTES PERCENT AUTO 15 % (4-13); Mean Corpuscular HGB 22.3 pg (26.0-34.0); Mean Corpuscular HGB Conc 31.3 g/dL (31.5-36.5); Mean Corpuscular Volume 72 fL (80-100); Mean Platelet Volume 9.6 fL (9.1-12.4); NEUTROPHILS ABSOLUTE AUTO 6.69 K/mm3 (1.96-9.15); NEUTROPHILS PERCENT AUTO 68 % (41-73); Platelet Count 395 K/mm3 (150-400); RDW Standard Deviation 57.7 fL (35.1-46.3)
[2024-12-28 10:43] LABS: Albumin, Blood 3.7 g/dL (3.4-5.0); Albumin/Globulin Ratio 1.2 (0.8-1.8); Bilirubin, Total 0.4 mg/dL (0.1-1.0); Bun/Creatinine Ratio 12.5 (12.0-20.0); Calcium, Blood 8.6 mg/dL (8.5-10.1); Creatinine, Blood 0.64 mg/dL (0.60-1.20); Globulin, Blood 3.2 g/dL (2.2-4.0); Potassium, Blood 4.2 mmol/L (3.5-5.5); Total Protein, Blood 6.9 g/dL (6.4-8.2)
== END | disposition home or self-care (01) ==
LOC: LAB 10:24 → LAB SHORT 10:24
PROVIDERS: Physician Assistant
DX: R06.02 Shortness of breath (principal)
CPT/HCPCS: 80053; 83880; 84484; 85025